=== PATIENT | male | born 1955 | race Caucasian/White ===

== ENCOUNTER 2017-02-16 07:45 | Emergency (ER) | payer MEDICAID ==
[~2017-02-16] VITALS: Ht 172.7 cm; Wt 81.6 kg
[2017-02-16 07:58] VITALS: BP_SYST 142
[2017-02-16 08:33] VITALS: BP_SYST 142
== END 2017-02-16 08:33 | disposition home or self-care (01) ==
LOC: SED 07:45
DX: S60.562A Insect bite (nonvenomous) of left hand, initial encounter (principal); L03.114 Cellulitis of left upper limb; F17.200 Nicotine dependence, unspecified, uncomplicated; Z86.19 Personal history of other infectious and parasitic diseases; W57.XXXA Bitten or stung by nonvenomous insect and other nonvenomous arthropods, initial encounter; Y93.89 Activity, other specified; Y92.89 Other specified places as the place of occurrence of the external cause; Y99.8 Other external cause status
CPT/HCPCS: 99283

== ENCOUNTER 2018-03-01 09:23 | Emergency (ER) | payer MEDICAID ==
[~2018-03-01] VITALS: Ht 172.7 cm; Wt 86.2 kg
[2018-03-01 09:23] VITALS: BP_SYST 145
[2018-03-01 10:45] VITALS: BP_SYST 145
== END 2018-03-01 10:42 | disposition home or self-care (01) ==
LOC: SED 09:23
DX: L02.11 Cutaneous abscess of neck (principal); L02.512 Cutaneous abscess of left hand; L02.511 Cutaneous abscess of right hand; R03.0 Elevated blood-pressure reading, without diagnosis of hypertension; Z86.19 Personal history of other infectious and parasitic diseases; Z90.89 Acquired absence of other organs
CPT/HCPCS: 99283